=== PATIENT | female | born 2000 | race Caucasian/White ===

== ENCOUNTER → 2020-03-06 | Outpatient (CLI) | payer OTHER | LOC: ZCOL.LAB 14:37 | DX: Z20.828 Contact with and (suspected) exposure to other viral communicable diseases (principal) ==

== ENCOUNTER → 2021-06-11 | Outpatient (CLI) | payer OTHER | LOC: COL.PUL 06-05 08:00 | DX: R05.3 Chronic cough (principal) ==

== ENCOUNTER 2021-10-31 14:16 | Outpatient (RCR) | payer OTHER | END 2021-11-26 | disposition home or self-care (01) | LOC: WSST | DX: R05.3 Chronic cough (principal) ==